=== PATIENT | female | born 1945 | race Caucasian/White ===

== ENCOUNTER → 2021-07-31 | Day surgery (SDC) | payer MEDICARE, OTHER ==
[~2021-07-31] VITALS: Ht 162.6 cm; Wt 70.3 kg
[~2021-07-31] MED LIST: ASPIRIN EC81 MG PO; CERTAGEN1 EACH PO; CIPRO250 MG PO; CLOPIDOGREL75 MG PO; COUMADIN2 MG PO; COZAAR25 MG PO; DAILY VALUE1 EACH PO; DIOVAN80 MG PO; JANTOVEN2 MG PO; JANTOVEN4 MG PO; KEPPRA500 MG PO; LIPITOR20 MG PO; MAG-OXIDE 400M400 MG PO; OS-CAL500 MG PO; PAXIL20 MG PO; PHOSLO667 MG PO; PLAVIX75 MG PO; PROTONIX 40MG T40 MG PO; SERTRALINE HCL50 MG PO; VITAMIN D-32000 UNIT PO; XARELTO2.5 MG PO; ZOLOFT25 MG PO
[2021-07-31 08:14] LABS: HCT 40.9 % (37.0-47.0); HGB 12.8 g/dl (12.5-16.0); MCH 29.2 pg (25.0-31.0); MCHC 31.3 g/dL (32.0-36.0); MCV 93.4 fL (78.0-100.0); RBC 4.38 M/uL (4.20-5.40); RDW 12.8 % (11.5-14.0); WBC 6.5 K/uL (4.0-10.5)
[2021-07-31 08:32] LABS: ALBUMIN 4.1 g/dL (3.4-5.0); BILIRUBIN - TOTAL 0.3 mg/dL (0.2-1.0); BUN/CREAT RATIO (CALC) 24.7 RATIO; CREATININE 0.73 mg/dL (0.51-0.95); GLOBULIN (CALCULATION) 3.4 g/dL; POTASSIUM 5.2 mmol/L (3.5-5.1); TOTAL PROTEIN 7.5 g/dL (6.4-8.2)
== END | disposition home or self-care (01) ==
LOC: FAS 07:45
PROVIDERS: Surgery
DX: Z12.11 Encounter for screening for malignant neoplasm of colon (principal); K57.30 Diverticulosis of large intestine without perforation or abscess without bleeding; I10 Essential (primary) hypertension; E78.00 Pure hypercholesterolemia, unspecified; J44.9 Chronic obstructive pulmonary disease, unspecified; Z86.73 Personal history of transient ischemic attack (TIA), and cerebral infarction without residual deficits; F03.90 Unspecified dementia, unspecified severity, without behavioral disturbance, psychotic disturbance, mood disturbance, and anxiety; Z79.82 Long term (current) use of aspirin; Z79.01 Long term (current) use of anticoagulants; Z79.899 Other long term (current) drug therapy
CPT/HCPCS: G0121; 36415; 80053; J1610; J2250; J2704; J7120